=== PATIENT | female | born 1930 | race Asian ===

== ENCOUNTER 2021-12-23 06:32 | Inpatient (IN) | payer OTHER, MEDICAID, SELFPAY ==
[~2021-12-23] VITALS: Ht 152.4 cm; Wt 49.9 kg
[2021-12-23 06:32] VITALS: BP_SYST 210
[2021-12-23] MEDS ORDERED: NACL 0.9% 1,000 ML IV ONE (06:45)
[2021-12-23] MEDS ORDERED: LABETALOL 100 MG/ 20ML VIAL IVP PRN (07:00)
[2021-12-23 07:51] LABS: BASOPHILS # (AUTO) 0.1 K/uL (0.0-0.2); BASOPHILS % (AUTO) 0.9 % (0.0-2.0); EOSINOPHILS # (AUTO) 0.2 K/uL (0.0-0.4); EOSINOPHILS % (AUTO) 3.7 % (0.0-4.0); HEMATOCRIT 38.2 % (36-48); HEMOGLOBIN 12.6 g/dL (12.0-16.0); LYMPHOCYTES % (AUTO) 18.7 % (20.5-51.5); MEAN CORPUSCULAR HEMOGLOBIN 31 pg (27-31); MEAN CORPUSCULAR HGB CONC 33 % (32-36); MEAN CORPUSCULAR VOLUME 95 fL (79.0-98.0); MONOCYTES # (AUTO) 0.5 K/uL (0.0-1.0); MONOCYTES % (AUTO) 8.8 % (1.7-9.3); NEUTROPHILS # (AUTO) 3.7 K/uL (1.8-7.7); NEUTROPHILS % (AUTO) 67.9 % (40.0-70.0); PLATELET COUNT (AUTO) 213 K/uL (130-430); RED BLOOD CELL COUNT(AUTO) 4.02 MIL/uL (4.2-6.2); RED CELL DISTRIBUTION WIDTH 14.3 % (9.0-15.0); WHITE BLOOD COUNT (AUTO) 5.4 K/uL (4.8-10.8)
[2021-12-23 07:59] LABS: ANION GAP 7 (5-15); CALCIUM 9.4 mg/dL (8.4-11.0); CHLORIDE 103 mmol/L (98-107); CREATININE 1.02 mg/dL (0.55-1.30); GLUCOSE 104 mg/dL (70-99); SODIUM SERUM 137 mmol/L (136-145); UREA NITROGEN, BLOOD 21 mg/dL (8-21)
[2021-12-23 08:07] LABS: ALANINE AMINOTRANSFERASE 16 U/L (12-78); ALBUMIN 3.3 g/dL (3.4-4.8); ASPARTATE AMINOTRANSFERASE 19 U/L (10-37); TOTAL BILIRUBIN 0.1 mg/dL (0.0-1.0)
[2021-12-23 08:09] LABS: PROTHROMBIN TIME 9.7 SECS (9.5-12.5)
[2021-12-23] MEDS ORDERED: niCARdipine 25 MG in D5W 240 ML IV PRN ×2 (08:15→10:30)
[2021-12-23 08:34] LABS: CHOLESTEROL 188 mg/dL (<200); HDL CHOLESTEROL 73 mg/dL (>55); LDL CHOLESTEROL 87 mg/dL (<100); TRIGLYCERIDES 148 mg/dL (30-150)
[2021-12-23] MEDS ORDERED: ACETAMINOPHEN 650 MG/20.3 ML UDC PO ONE (08:45)
[2021-12-23] MEDS ORDERED: NORMAL SALINE 5 ML DISP.SYRIN IVF ONE (10:30)
[2021-12-23 11:26] LABS: BILIRUBIN,URINE NEGATIVE (NEGATIVE); CLARITY/URINE CLEAR (CLEAR); COLOR,URINE YELLOW (YELLOW); GLUCOSE,URINE NEGATIVE (NEGATIVE); KETONES,URINE NEGATIVE (NEGATIVE); LEUKOCYTE ESTERASE ,URINE TRACE (NEGATIVE); NITRITE, URINE NEGATIVE (NEGATIVE); PH,URINE 6.5 (5.0-8.0); PROTEIN URINE NEGATIVE (NEGATIVE); UROBILINOGEN,URINE 0.2 (0.2-1.0)
[2021-12-23 11:31] LABS: BLOOD, URINE TRACE (NEGATIVE)
[2021-12-23 11:44] LABS: BARBITURATE, URINE NEGATIVE (NEG <=200); BENZODIAZEPINE, URINE NEGATIVE (NEG <=150); CANNABINOID, URINE NEGATIVE (NEG <=50); COCAINE, URINE NEGATIVE (NEG <=150); METHAMPHETAMINES SCREEN,URINE NEGATIVE (NEG <=500); OPIATE, URINE NEGATIVE (NEG <=100); PHENCYCLIDINE SCREEN,URINE NEGATIVE (NEG <=25); UR TRICYCLIC ANTIDEPRESSANTS NEGATIVE (NEG <=300); URINE AMPHETAMINE NEGATIVE (NEG <=500); URINE METHADONE NEGATIVE (NEG <=200); URINE OXYCODONE SCREEN NEGATIVE (NEG <=100); URINE PROPOXYPHENE SCREEN NEGATIVE (NEG <=300)
[2021-12-23] MEDS ORDERED: LORazepam 2 MG/ML VIAL IVP ONE (13:30)
[2021-12-23 13:35] LABS: BACTERIA,URINE FEW /HPF (None Seen)
[2021-12-23 14:00] VITALS: BP_SYST 167
[2021-12-23 15:00] VITALS: BP_SYST 131
[2021-12-23 16:00] VITALS: BP_SYST 117
[2021-12-23 17:00] VITALS: BP_SYST 147
[2021-12-23 18:00] VITALS: BP_SYST 144
[2021-12-23] MEDS ORDERED: ATOR10TA68 PO (18:03)
[2021-12-23] MEDS ORDERED: FAMO20TA8 PO (18:03)
[2021-12-23] MEDS ORDERED: DOCU-144 PO (18:03)
[2021-12-23] MEDS ORDERED: FER300L PO (18:03)
[2021-12-23] MEDS ORDERED: FOLI-43 PO (18:03)
[2021-12-23] MEDS ORDERED: CAT1PAT PO (18:03)
[2021-12-23] MEDS ORDERED: GABA-529 PO (18:03)
[2021-12-23] MEDS ORDERED: LOSA100T3 PO (18:03)
[2021-12-24] VITALS (13 sets, daily range): BP systolic 135–166
[2021-12-24 06:18] LABS: BASOPHILS % (AUTO) 0.6 % (0.0-2.0); EOSINOPHILS # (AUTO) 0.2 K/uL (0.0-0.4); EOSINOPHILS % (AUTO) 2.4 % (0.0-4.0); HEMATOCRIT 33.9 % (36-48); HEMOGLOBIN 11.3 g/dL (12.0-16.0); LYMPHOCYTES # (AUTO) 1.5 K/uL (1.0-5.5); LYMPHOCYTES % (AUTO) 20.3 % (20.5-51.5); MEAN CORPUSCULAR HEMOGLOBIN 31 pg (27-31); MEAN CORPUSCULAR HGB CONC 33 % (32-36); MEAN CORPUSCULAR VOLUME 94 fL (79.0-98.0); MONOCYTES # (AUTO) 0.9 K/uL (0.0-1.0); MONOCYTES % (AUTO) 11.2 % (1.7-9.3); NEUTROPHILS % (AUTO) 65.5 % (40.0-70.0); PLATELET COUNT (AUTO) 223 K/uL (130-430); RED BLOOD CELL COUNT(AUTO) 3.61 MIL/uL (4.2-6.2); RED CELL DISTRIBUTION WIDTH 14.8 % (9.0-15.0); WHITE BLOOD COUNT (AUTO) 7.6 K/uL (4.8-10.8)
[2021-12-24 07:38] LABS: ALANINE AMINOTRANSFERASE 17 U/L (12-78); ANION GAP 9 (5-15); ASPARTATE AMINOTRANSFERASE 21 U/L (10-37); CALCIUM 8.8 mg/dL (8.4-11.0); CHLORIDE 103 mmol/L (98-107); CREATININE 0.91 mg/dL (0.55-1.30); GLUCOSE 83 mg/dL (70-99); POTASSIUM 4.2 mmol/L (3.5-5.1); SODIUM SERUM 136 mmol/L (136-145); TOTAL BILIRUBIN 0.2 mg/dL (0.0-1.0); UREA NITROGEN, BLOOD 16 mg/dL (8-21)
[2021-12-24] MEDS: amLODIPine BESYLATE 5 MG TABLET PO SCH (09:00)
[2021-12-24] MEDS: ASPIRIN 81 MG TAB.CHEW PO SCH (09:00)
[2021-12-24] MEDS ORDERED: LISINOPRIL 10 MG TABLET (PRINIVIL) PO ONE (21:00)
[2021-12-24] MEDS ORDERED: ACETAMINOPHEN 500 MG TABLET PO PRN (21:00)
[2021-12-24] MEDS ORDERED: LISINOPRIL 10 MG TABLET (PRINIVIL) ONE (21:01)
[2021-12-24] MEDS: MUPIROCIN 2% TOPICAL OINTMENT 22 GM TP SCH (21:15)
[2021-12-24] MEDS: TEMAZEPAM 15 MG CAPSULE PO PRN (21:35)
[2021-12-25] VITALS: BP_SYST 155
[2021-12-25 04:00] VITALS: BP_SYST 154
[2021-12-25 06:30] LABS: ANION GAP 9 (5-15); CALCIUM 9.3 mg/dL (8.4-11.0); CHLORIDE 104 mmol/L (98-107); CREATININE 0.93 mg/dL (0.55-1.30); GLUCOSE 77 mg/dL (70-99); POTASSIUM 3.7 mmol/L (3.5-5.1); SODIUM SERUM 137 mmol/L (136-145); UREA NITROGEN, BLOOD 16 mg/dL (8-21)
[2021-12-25 07:18] LABS: BASOPHILS # (AUTO) 0.1 K/uL (0.0-0.2); BASOPHILS % (AUTO) 0.8 % (0.0-2.0); EOSINOPHILS # (AUTO) 0.2 K/uL (0.0-0.4); EOSINOPHILS % (AUTO) 3.1 % (0.0-4.0); HEMATOCRIT 36.3 % (36-48); HEMOGLOBIN 11.9 g/dL (12.0-16.0); LYMPHOCYTES # (AUTO) 2.1 K/uL (1.0-5.5); MEAN CORPUSCULAR HEMOGLOBIN 31 pg (27-31); MEAN CORPUSCULAR HGB CONC 33 % (32-36); MEAN CORPUSCULAR VOLUME 95 fL (79.0-98.0); MONOCYTES # (AUTO) 0.7 K/uL (0.0-1.0); MONOCYTES % (AUTO) 10.9 % (1.7-9.3); NEUTROPHILS # (AUTO) 3.8 K/uL (1.8-7.7); NEUTROPHILS % (AUTO) 55.2 % (40.0-70.0); PLATELET COUNT (AUTO) 205 K/uL (130-430); RED BLOOD CELL COUNT(AUTO) 3.81 MIL/uL (4.2-6.2); RED CELL DISTRIBUTION WIDTH 14.9 % (9.0-15.0); WHITE BLOOD COUNT (AUTO) 6.9 K/uL (4.8-10.8)
[2021-12-25 08:00] VITALS: BP_SYST 160
[2021-12-25] MEDS: ASPIRIN 81 MG TAB.CHEW PO SCH (08:44)
[2021-12-25] MEDS: LISINOPRIL 10 MG TABLET (PRINIVIL) PO SCH (08:45)
[2021-12-25] MEDS: MUPIROCIN 2% TOPICAL OINTMENT 22 GM TP SCH ×2 (08:45→21:42)
[2021-12-25] MEDS: amLODIPine BESYLATE 5 MG TABLET PO SCH (08:46)
[2021-12-25 12:00] VITALS: BP_SYST 132
[2021-12-25 16:00] VITALS: BP_SYST 145
[2021-12-25 20:00] VITALS: BP_SYST 153; BP_SYST 155
[2021-12-26] VITALS: BP_SYST 145
[2021-12-26 04:00] VITALS: BP_SYST 142
[2021-12-26 07:35] VITALS: BP_SYST 175
[2021-12-26] MEDS: ASPIRIN 81 MG TAB.CHEW PO SCH (08:27)
[2021-12-26] MEDS: amLODIPine BESYLATE 5 MG TABLET PO SCH (08:28)
[2021-12-26] MEDS: LISINOPRIL 10 MG TABLET (PRINIVIL) PO SCH (08:28)
[2021-12-26] MEDS: ACETAMINOPHEN 325 MG TABLET PO PRN ×2 (08:29→18:32)
[2021-12-26] MEDS: MUPIROCIN 2% TOPICAL OINTMENT 22 GM TP SCH ×2 (08:33→23:30)
[2021-12-26] MEDS ORDERED: MILK OF MAGNESIA 30 ML UDC PO ONE (09:00)
[2021-12-26] MEDS ORDERED: amLODIPine BESYLATE 5 MG TABLET PO SCH (09:00)
[2021-12-26 11:25] VITALS: BP_SYST 158
[2021-12-26 15:35] VITALS: BP_SYST 144
[2021-12-26 20:00] VITALS: BP_SYST 147
[2021-12-27] MEDS: TEMAZEPAM 15 MG CAPSULE PO PRN (02:03)
[2021-12-27 08:15] VITALS: BP_SYST 138
[2021-12-27] MEDS: ASPIRIN 81 MG TAB.CHEW PO SCH (09:29)
[2021-12-27] MEDS: LISINOPRIL 10 MG TABLET (PRINIVIL) PO SCH (09:29)
[2021-12-27] MEDS: amLODIPine BESYLATE 5 MG TABLET PO SCH (09:29)
[2021-12-27] MEDS: MUPIROCIN 2% TOPICAL OINTMENT 22 GM TP SCH (09:30)
[2021-12-27 11:33] VITALS: BP_SYST 136
[2021-12-27 12:11] VITALS: BP_SYST 132
== END 2021-12-27 15:25 | disposition home health service (06) | DRG 69 ==
LOC: SED 06:32 → SIC 10:27 → STU 12-25 05:19 → SIC 12-25 07:42 → SMU 12-25 18:42 → STU 12-25 19:47
PROVIDERS: ADMIT Internal Medicine; ATTEND Internal Medicine
DX: G45.9 Transient cerebral ischemic attack, unspecified (principal); E44.1 Mild protein-calorie malnutrition; E11.9 Type 2 diabetes mellitus without complications; E78.5 Hyperlipidemia, unspecified; F03.90 Unspecified dementia, unspecified severity, without behavioral disturbance, psychotic disturbance, mood disturbance, and anxiety; I10 Essential (primary) hypertension; G89.29 Other chronic pain; M19.90 Unspecified osteoarthritis, unspecified site; R07.89 Other chest pain; Z20.822 Contact with and (suspected) exposure to COVID-19; R53.81 Other malaise; Z86.19 Personal history of other infectious and parasitic diseases; Z86.73 Personal history of transient ischemic attack (TIA), and cerebral infarction without residual deficits; Z79.899 Other long term (current) drug therapy; Z68.21 Body mass index [BMI] 21.0-21.9, adult
CPT/HCPCS: 36415; 70450-TC; 70551; 71045; 76376; 80048; 80053; 80061; 80307; 81000; 82962; 84484; 85025; 85610-TC; 85730-TC; 86886; 86900; 86901; 87081; 87086; 92610-GN; 93005; 93306; 96374; 96375; 97110-GP; 97112-GP; 97116-GP; 97163-GP; 97530-GP; 99285; J2060; J3490; J7060

== ENCOUNTER 2021-12-31 13:43 | Inpatient (IN) | payer OTHER, MEDICAID ==
[~2021-12-31] VITALS: Ht 149.9 cm; Wt 43.1 kg
[~2021-12-31 13:43] MED LIST: ATOR10TA68 PO; CAT1PAT PO; DOCU-144 PO; FAMO20TA8 PO; FER300L PO; FOLI-43 PO; GABA-529 PO; LOSA100T3 PO
--- NOTE | 2021-12-31 13:45 | NUR ---
BROUGHT IN BY [facility]. TRIAGED AND PLACED IN BED #2, REPORT GIVEN TO KIM
--- NOTE | 2021-12-31 14:00 | NUR ---
mechelle finch wants to be notified if pt will be admin [phone]
--- NOTE | 2021-12-31 14:51 | NUR ---
# 22 gauge angiocath placed to right forearm. Use of asceptic technique. Opsite placed over site. Blood return noted. Blood for lab drawn from site. Flushed with 10 cc of normal saline. No evidence of infiltration noted. Patient tolerated well.
[2021-12-31 15:23] LABS: BASOPHILS % (AUTO) 0.6 % (0.0-2.0); EOSINOPHILS # (AUTO) 0.3 K/uL (0.0-0.4); EOSINOPHILS % (AUTO) 4.7 % (0.0-4.0); HEMATOCRIT 27.6 % (36-48); HEMOGLOBIN 9.3 g/dL (12.0-16.0); LYMPHOCYTES # (AUTO) 1.5 K/uL (1.0-5.5); LYMPHOCYTES % (AUTO) 24.2 % (20.5-51.5); MEAN CORPUSCULAR HEMOGLOBIN 32 pg (27-31); MEAN CORPUSCULAR HGB CONC 34 % (32-36); MEAN CORPUSCULAR VOLUME 95 fL (79.0-98.0); MONOCYTES # (AUTO) 0.5 K/uL (0.0-1.0); NEUTROPHILS # (AUTO) 3.9 K/uL (1.8-7.7); NEUTROPHILS % (AUTO) 62.5 % (40.0-70.0); PLATELET COUNT (AUTO) 185 K/uL (130-430); RED CELL DISTRIBUTION WIDTH 14.9 % (9.0-15.0); WHITE BLOOD COUNT (AUTO) 6.2 K/uL (4.8-10.8)
[2021-12-31 15:52] LABS: ANION GAP 9 (5-15); CALCIUM 8.8 mg/dL (8.4-11.0); CHLORIDE 104 mmol/L (98-107); GLUCOSE 146 mg/dL (70-99); POTASSIUM 4.4 mmol/L (3.5-5.1); SODIUM SERUM 137 mmol/L (136-145); UREA NITROGEN, BLOOD 66 mg/dL (8-21)
[2021-12-31 15:59] LABS: ALANINE AMINOTRANSFERASE 15 U/L (12-78); ALBUMIN 2.8 g/dL (3.4-4.8); ASPARTATE AMINOTRANSFERASE 20 U/L (10-37)
[2021-12-31 16:27] LABS: INR 0.9 (0.8-1.2); PROTHROMBIN TIME 9.7 SECS (9.5-12.5)
[2021-12-31 17:02] LABS: C-REACTIVE PROTEIN QUANT 0.5 mg/dL (0-0.5); TOTAL BILIRUBIN 0.2 mg/dL (0.0-1.0)
[2021-12-31 17:54] LABS: BILIRUBIN,URINE NEGATIVE (NEGATIVE); BLOOD, URINE NEGATIVE (NEGATIVE); CLARITY/URINE CLEAR (CLEAR); COLOR,URINE YELLOW (YELLOW); GLUCOSE,URINE NEGATIVE (NEGATIVE); KETONES,URINE NEGATIVE (NEGATIVE); LEUKOCYTE ESTERASE ,URINE NEGATIVE (NEGATIVE); NITRITE, URINE NEGATIVE (NEGATIVE); PROTEIN URINE NEGATIVE (NEGATIVE); UROBILINOGEN,URINE 0.2 (0.2-1.0)
[2021-12-31] MEDS ORDERED: PANTOPRAZOLE SODIUM 80 MG in NS 100 ML IV ONE (18:15)
--- NOTE | 2021-12-31 18:40 | NUR ---
Admit bed requested Patient will be admitted to care of . Admitted to Tele unit. Diagnosis Low GI bleed Inpatient (Yes or No) Yes Observation (Yes or No) No Orientation concerns or request close to nursing station (Yes or No) no Covid Status Pending On vent or bipap no Isolation requirements none Needs a sitter no From Home (Yes or if No enter name of facility) yes Requires Dialysis (Yes or No) no Med Rec Completed (Yes of No) yes
[2021-12-31] MEDS ORDERED: PANTOPRAZOLE SODIUM 40 MG/VIAL (PROTONIX) ONE ×2 (19:03→23:28)
[2021-12-31 19:31] LABS: BASOPHILS % (AUTO) 0.6 % (0.0-2.0); EOSINOPHILS # (AUTO) 0.2 K/uL (0.0-0.4); HEMATOCRIT 34.2 % (36-48); LYMPHOCYTES # (AUTO) 1.4 K/uL (1.0-5.5); LYMPHOCYTES % (AUTO) 22.1 % (20.5-51.5); MEAN CORPUSCULAR HEMOGLOBIN 31 pg (27-31); MEAN CORPUSCULAR HGB CONC 32 % (32-36); MEAN CORPUSCULAR VOLUME 96 fL (79.0-98.0); MONOCYTES # (AUTO) 0.5 K/uL (0.0-1.0); MONOCYTES % (AUTO) 7.7 % (1.7-9.3); NEUTROPHILS # (AUTO) 4.1 K/uL (1.8-7.7); NEUTROPHILS % (AUTO) 65.6 % (40.0-70.0); PLATELET COUNT (AUTO) 200 K/uL (130-430); RED BLOOD CELL COUNT(AUTO) 3.58 MIL/uL (4.2-6.2); RED CELL DISTRIBUTION WIDTH 15.2 % (9.0-15.0); WHITE BLOOD COUNT (AUTO) 6.2 K/uL (4.8-10.8)
[2021-12-31] MEDS ORDERED: D5NS 1,000 ML IV ONE (19:45)
--- NOTE | 2021-12-31 19:50 | NUR ---
Received pt up in bed in stable condition. No signs of acute distress. Assisted to use bedpan and voided x1.
--- NOTE | 2021-12-31 21:39 | NUR ---
Patient will be admitted to care of [facility]. Admitted to Tele unit. Will go to room 103B. Complete and up to date summary report printed. SBAR report to be given at bedside with opportunity for questions. Spoke to mechelle Albarado and was notified of admit orders.
--- NOTE | 2021-12-31 21:40 | NUR ---
Per son, NO BLOOD TRANSFUSION due to yarsanism beliefs.
--- NOTE | 2021-12-31 22:30 | NUR ---
Patient will be admitted to care of [facility]. Admitted to Tele unit. Will go to room 103B. Complete and up to date summary report printed. SBAR report given to VINCE Cortez with opportunity for questions.
--- NOTE | 2021-12-31 22:50 | NUR ---
ADMISSION NOTE Received patient from ER via gurney. Patient admitted with diagnosis of lower gi bleed. Patient is awake, alert, oriented X 4. Patient oriented to hospital room, call light, toileting, pain management and safety-teach back done. Patient informed that will be nurse and that their room number is . Personal belongings checked and Belongings List documented. Call light within reach.
[2021-12-31] MEDS: PANTOPRAZOLE SODIUM 40 MG/VIAL (PROTONIX) IVP SCH (23:00)
--- NOTE | 2021-12-31 23:57 | NUR ---
CONSULTATION PAGED/CALLED Reason for Consultation: LOWER GI BLEED Person Who was Notified: TEENA Consulting Physician: KINZA Albright Specialty: Ordering Physician: ALYCIA Addendum: 01/01/22 at 0000 by Jhoana Leong CNA DR HERNANDEZ IS HOSPICE LIAISON
[2022-01-01] VITALS: BP_SYST 127
[2022-01-01 00:09] VITALS: BP_SYST 134
[2022-01-01 05:54] LABS: ANION GAP 10 (5-15); CALCIUM 8.7 mg/dL (8.4-11.0); CHLORIDE 112 mmol/L (98-107); CREATININE 1.26 mg/dL (0.55-1.30); GLUCOSE 73 mg/dL (70-99); SODIUM SERUM 144 mmol/L (136-145); UREA NITROGEN, BLOOD 46 mg/dL (8-21)
[2022-01-01 07:03] LABS: BASOPHILS % (AUTO) 0.5 % (0.0-2.0); EOSINOPHILS # (AUTO) 0.3 K/uL (0.0-0.4); EOSINOPHILS % (AUTO) 3.9 % (0.0-4.0); HEMATOCRIT 32.3 % (36-48); HEMOGLOBIN 10.4 g/dL (12.0-16.0); LYMPHOCYTES # (AUTO) 1.3 K/uL (1.0-5.5); LYMPHOCYTES % (AUTO) 18.9 % (20.5-51.5); MEAN CORPUSCULAR HEMOGLOBIN 31 pg (27-31); MEAN CORPUSCULAR HGB CONC 32 % (32-36); MEAN CORPUSCULAR VOLUME 96 fL (79.0-98.0); MONOCYTES # (AUTO) 0.6 K/uL (0.0-1.0); MONOCYTES % (AUTO) 8.3 % (1.7-9.3); NEUTROPHILS # (AUTO) 4.7 K/uL (1.8-7.7); NEUTROPHILS % (AUTO) 68.4 % (40.0-70.0); PLATELET COUNT (AUTO) 218 K/uL (130-430); RED BLOOD CELL COUNT(AUTO) 3.37 MIL/uL (4.2-6.2); RED CELL DISTRIBUTION WIDTH 15.5 % (9.0-15.0); WHITE BLOOD COUNT (AUTO) 6.8 K/uL (4.8-10.8)
--- NOTE | 2022-01-01 07:12 | NUR ---
REPORT GIVEN TO VINCE Eng, AND CARE WAS TURNED OVER TO HER.
--- NOTE | 2022-01-01 07:50 | NUR ---
Patient urinated in bedpan; then pulled up in bed. Denies any pain at this time. Patient stable.
[2022-01-01 08:00] VITALS: BP_SYST 153
--- NOTE | 2022-01-01 08:35 | NUR ---
Patient resting comfortably in bed with Dr. Pacheco at bedside.
--- NOTE | 2022-01-01 09:20 | NUR ---
Scheduled IVP given per order. Started new IVF bag as well. Patient stable at this time.
[2022-01-01] MEDS: KCL 20 mEq in D5/0.45NS 1000mL 1,000 ML IV SCH (09:23)
[2022-01-01] MEDS: PANTOPRAZOLE SODIUM 40 MG/VIAL (PROTONIX) IVP SCH ×2 (09:23→20:37)
[2022-01-01 12:20] VITALS: BP_SYST 126
--- NOTE | 2022-01-01 12:20 | NUR ---
Patient pulled up in bed to eat lunch. Patient resting comfortably in bed with Per min at bedside. Patient requested pain medication. Will medicate for pain. Addendum: 01/01/22 at 1227 by Shavon Moore RN Will call doctor for order for pain med Addendum: 01/01/22 at 1235 by Shavon Moore RN Paged Dr. Balderrama at [phone]. Spoke to Lacey. Awaiting call back from doctor.
[2022-01-01] MEDS: ACETAMINOPHEN 325 MG TABLET PO PRN (13:29)
--- NOTE | 2022-01-01 13:30 | NUR ---
Patient medicated for 6/10 pain in right flank. Patient stable with son and grandson at bedside.
--- NOTE | 2022-01-01 14:25 | NUR ---
Patient resting quietly in bed with Jamal (MAGI), son, and grandson at bedside. Patient stable.
[2022-01-01 16:12] VITALS: BP_SYST 142
--- NOTE | 2022-01-01 16:30 | NUR ---
Patient stable; resting comfortably in bed with Dr. Balderrama at bedside.
[2022-01-01] MEDS ORDERED: MILK OF MAGNESIA 30 ML UDC PO ONE ×2 (17:15→17:30)
[2022-01-01] MEDS ORDERED: MILK OF MAGNESIA 30 ML UDC PO PRN (17:30)
--- NOTE | 2022-01-01 18:55 | NUR ---
Scheduled medication given per order. Patient stable throughout shift.
[2022-01-01 20:00] VITALS: BP_SYST 185
[2022-01-01] MEDS: SENNOSIDES 8.6 MG TABLET PO SCH (20:38)
[2022-01-01] MEDS: MELATONIN 5 MG TABLET PO SCH (21:22)
[2022-01-02 00:09] VITALS: BP_SYST 165
[2022-01-02] MEDS: KCL 20 mEq in D5/0.45NS 1000mL 1,000 ML IV SCH ×3 (01:42→23:33)
--- NOTE | 2022-01-02 02:49 | NUR ---
PT WENT HOME AGAINST MEDICAL ADVICE. VITALS WERE TAKEN AND ARE WERE WITHIN NORMAL LIMITS. PERIPHERAL IV WAS REMOVED. MD MADE AWARE Addendum: 01/02/22 at 0346 by Devin feller operator PLEASE DISREGRADE NOTE, WRONG PT Addendum: 01/02/22 at 0347 by Sixteen feller operator PLEASE DISREGARD NOTE, WRONG PT
--- NOTE | 2022-01-02 03:47 | NUR ---
PLEASE DISREGARD NOTE WRONG PT
[2022-01-02 08:00] VITALS: BP_SYST 166
--- NOTE | 2022-01-02 08:00 | NUR ---
Initial Note Patient is in bed resting. Vital signs were obtained. Patient reported pain of R side ribs, stated pain is chronic from shingles two years ago. Medicated patient and will reassess pain in an hour. Call light within reach and bed is locked and at lowest position.
[2022-01-02] MEDS: ACETAMINOPHEN 325 MG TABLET PO PRN ×3 (08:13→21:51)
[2022-01-02] MEDS ORDERED: DIATR MEGLU/DIATRIZ SOD 30 ML SOLUTION PO ONE (08:18)
[2022-01-02] MEDS: PANTOPRAZOLE SODIUM 40 MG/VIAL (PROTONIX) IVP SCH ×2 (08:20→21:50)
--- NOTE | 2022-01-02 10:30 | NUR ---
Karen Hong 3.1, called and spoke to Dr. Hyde. New orders recieved Addendum: 01/02/22 at 1053 by Mariama Castillo LVN Wrong Entry
--- NOTE | 2022-01-02 10:49 | NUR ---
HIGH ALERT NOTE: Called Dr. Hyde back at identified within the medical roster to verify physician authenticity. Addendum: 01/02/22 at 1053 by Mariama Castillo LVN Wrong Entry
--- NOTE | 2022-01-02 11:05 | NUR ---
Notes Blood pressure is elevated. Dr. Spring is here covering for Dr. Shi, made aware.
[2022-01-02] MEDS ORDERED: FOLIC ACID 1 MG TABLET PO ONE (12:00)
[2022-01-02] MEDS ORDERED: GABAPENTIN 100 MG CAPSULE PO ONE (12:00)
[2022-01-02] MEDS ORDERED: cloNIDine HCL 0.1 MG/24 HR PATCH.TDWK TD ONE (12:00)
[2022-01-02] MEDS ORDERED: LOSARTAN POTASSIUM 50 MG TABLET (COZAAR) PO ONE (12:00)
--- NOTE | 2022-01-02 12:22 | NUR ---
Dietitian Recommendations * Consider advance to 2 gm Na, soft (low fiber/band) diet if/when medically appropriate LP, RD Please refer to Nutrition Assessment for details. Addendum: 01/02/22 at [address] Amended: Links added.
[2022-01-02 13:13] VITALS: BP_SYST 201
[2022-01-02 14:00] VITALS: BP_SYST 152
--- NOTE | 2022-01-02 16:00 | NUR ---
Patient reported a head ache, gave medication Acetaminophen. Patient also felt warm, temperature was 100.8 Fahrenheit. Put a wet wash cloth on forehead and took some of her blankets off. Will continue to monitor during the rest of the shift.
[2022-01-02 16:39] VITALS: BP_SYST 169
--- NOTE | 2022-01-02 18:30 | NUR ---
Closing Note Assisted patient to bedside commode and is back in bed. Patient in no distress or pain. Patient temperature is 99.7 Fahrenheit. Will report to following nurse to continue monitoring. Monitor blood pressure. Call light within reach. Bed alarm on, locked, and at lowest position.
--- NOTE | 2022-01-02 21:00 | NUR ---
ASSIST Patient out of bed for BSC , verbally indicative FALL MEASURES implemented , call paulino given to patient assist as needed .
[2022-01-02] MEDS: GABAPENTIN 100 MG CAPSULE PO SCH (21:50)
[2022-01-02] MEDS: MELATONIN 5 MG TABLET PO SCH (21:50)
[2022-01-02] MEDS: SENNOSIDES 8.6 MG TABLET PO SCH (21:51)
--- NOTE | 2022-01-02 23:30 | NUR ---
TYLENOL 650 MG po given for general pain & helpful .
--- NOTE | 2022-01-03 00:13 | NUR ---
paged paged doctor earl for orders
[2022-01-03 00:30] VITALS: BP_SYST 198
--- NOTE | 2022-01-03 00:40 | NUR ---
Phoned Paged DR DIMPLE GOODE SECOND TIME .
--- NOTE | 2022-01-03 00:51 | NUR ---
NEW ORDERS FROM DR DIMPLE GOODE
[2022-01-03] MEDS: cloNIDine HCL 0.1 MG TABLET PO PRN ×2 (02:20→22:10)
[2022-01-03 08:04] LABS: BASOPHILS % (AUTO) 0.4 % (0.0-2.0); EOSINOPHILS # (AUTO) 0.4 K/uL (0.0-0.4); EOSINOPHILS % (AUTO) 5.2 % (0.0-4.0); HEMATOCRIT 29.3 % (36-48); HEMOGLOBIN 9.8 g/dL (12.0-16.0); LYMPHOCYTES # (AUTO) 1.5 K/uL (1.0-5.5); LYMPHOCYTES % (AUTO) 21.3 % (20.5-51.5); MEAN CORPUSCULAR HEMOGLOBIN 32 pg (27-31); MEAN CORPUSCULAR HGB CONC 34 % (32-36); MEAN CORPUSCULAR VOLUME 95 fL (79.0-98.0); MONOCYTES # (AUTO) 0.5 K/uL (0.0-1.0); MONOCYTES % (AUTO) 7.9 % (1.7-9.3); NEUTROPHILS # (AUTO) 4.5 K/uL (1.8-7.7); NEUTROPHILS % (AUTO) 65.2 % (40.0-70.0); PLATELET COUNT (AUTO) 215 K/uL (130-430); RED BLOOD CELL COUNT(AUTO) 3.09 MIL/uL (4.2-6.2); RED CELL DISTRIBUTION WIDTH 15.3 % (9.0-15.0); WHITE BLOOD COUNT (AUTO) 6.8 K/uL (4.8-10.8)
[2022-01-03 08:58] LABS: ANION GAP 5 (5-15); CALCIUM 8.3 mg/dL (8.4-11.0); CHLORIDE 110 mmol/L (98-107); GLUCOSE 101 mg/dL (70-99); POTASSIUM 5.3 mmol/L (3.5-5.1); SODIUM SERUM 138 mmol/L (136-145); UREA NITROGEN, BLOOD 18 mg/dL (8-21)
[2022-01-03 09:05] LABS: TOTAL IRON BIND. CAPACITY 120 ug/dL (250-450)
[2022-01-03] MEDS: LOSARTAN POTASSIUM 50 MG TABLET (COZAAR) PO SCH (09:36)
[2022-01-03] MEDS: GABAPENTIN 100 MG CAPSULE PO SCH ×2 (09:36→22:09)
[2022-01-03] MEDS: FOLIC ACID 1 MG TABLET PO SCH (09:37)
[2022-01-03] MEDS: PANTOPRAZOLE SODIUM 40 MG/VIAL (PROTONIX) IVP SCH ×2 (09:37→22:09)
[2022-01-03] MEDS: ATORVASTATIN 10 MG TABLET PO SCH (09:37)
[2022-01-03] MEDS: DOCUSATE SODIUM 100 MG CAPSULE PO SCH (09:37)
[2022-01-03 12:41] VITALS: BP_SYST 153
[2022-01-03 16:06] VITALS: BP_SYST 148
[2022-01-03 20:06] VITALS: BP_SYST 149
[2022-01-03 21:00] VITALS: BP_SYST 163
[2022-01-03] MEDS: MELATONIN 5 MG TABLET PO SCH (21:00)
[2022-01-03] MEDS: SENNOSIDES 8.6 MG TABLET PO SCH (22:08)
[2022-01-03] MEDS: ACETAMINOPHEN 325 MG TABLET PO PRN (22:09)
--- NOTE | 2022-01-03 22:26 | NUR ---
CLONIDINE 0.1 MG po administer for elevated BP 163/85 HR 92 skin dry warm continue to monitor .
[2022-01-04 00:51] VITALS: BP_SYST 128
--- NOTE | 2022-01-04 01:24 | NUR ---
TYLENOL 650 MG po given for acute pain general & helpful patient resting .
[2022-01-04 08:00] VITALS: BP_SYST 150
[2022-01-04 08:06] LABS: FOLATE (FOLIC ACID) >20.0 ng/mL (>3.0)
[2022-01-04 08:48] LABS: BASOPHILS % (AUTO) 0.8 % (0.0-2.0); EOSINOPHILS # (AUTO) 0.4 K/uL (0.0-0.4); EOSINOPHILS % (AUTO) 6.8 % (0.0-4.0); HEMATOCRIT 31.6 % (36-48); HEMOGLOBIN 10.6 g/dL (12.0-16.0); LYMPHOCYTES # (AUTO) 1.3 K/uL (1.0-5.5); LYMPHOCYTES % (AUTO) 22.2 % (20.5-51.5); MEAN CORPUSCULAR HEMOGLOBIN 32 pg (27-31); MEAN CORPUSCULAR HGB CONC 34 % (32-36); MEAN CORPUSCULAR VOLUME 95 fL (79.0-98.0); MONOCYTES # (AUTO) 0.5 K/uL (0.0-1.0); MONOCYTES % (AUTO) 8.2 % (1.7-9.3); NEUTROPHILS # (AUTO) 3.7 K/uL (1.8-7.7); PLATELET COUNT (AUTO) 241 K/uL (130-430); RED BLOOD CELL COUNT(AUTO) 3.34 MIL/uL (4.2-6.2); RED CELL DISTRIBUTION WIDTH 15.1 % (9.0-15.0); WHITE BLOOD COUNT (AUTO) 5.9 K/uL (4.8-10.8)
[2022-01-04 09:09] LABS: ALANINE AMINOTRANSFERASE 15 U/L (12-78); ALBUMIN 2.5 g/dL (3.4-4.8); ANION GAP 6 (5-15); ASPARTATE AMINOTRANSFERASE 17 U/L (10-37); CALCIUM 8.6 mg/dL (8.4-11.0); CHLORIDE 107 mmol/L (98-107); CREATININE 0.95 mg/dL (0.55-1.30); GLUCOSE 81 mg/dL (70-99); POTASSIUM 5.1 mmol/L (3.5-5.1); SODIUM SERUM 138 mmol/L (136-145); TOTAL BILIRUBIN 0.5 mg/dL (0.0-1.0); UREA NITROGEN, BLOOD 16 mg/dL (8-21)
[2022-01-04] MEDS: FOLIC ACID 1 MG TABLET PO SCH (09:18)
[2022-01-04] MEDS: DOCUSATE SODIUM 100 MG CAPSULE PO SCH (09:19)
[2022-01-04] MEDS: GABAPENTIN 100 MG CAPSULE PO SCH (09:19)
[2022-01-04] MEDS: ATORVASTATIN 10 MG TABLET PO SCH (09:19)
[2022-01-04] MEDS: LOSARTAN POTASSIUM 50 MG TABLET (COZAAR) PO SCH (09:19)
[2022-01-04] MEDS: PANTOPRAZOLE SODIUM 40 MG/VIAL (PROTONIX) IVP SCH (09:20)
--- NOTE | 2022-01-04 10:53 | NUR ---
DISCHARGE PLANNING Called & spoke with Dr Balderrama to discuss dc planning. States was not on over the weekend & will come see pt around 1300. Will not discuss dc planning or give any dc planning orders until comes see pt.
--- NOTE | 2022-01-04 14:31 | NUR ---
Discharge Planning: [facility] faxed pt home health referral to [facility] P#[phone] DCP to follow up. Addendum: 01/04/22 at 1559 by Jennifer COX [facility] P#[phone] is resuming home health.
[2022-01-04 14:41] VITALS: BP_SYST 123
--- NOTE | 2022-01-04 18:03 | NUR ---
0800: PATIENT AWAKE, ALERT, ORIENTED X 3 TO NAME, PERSON, AND PLACE. FORGETFUL BUT ABLE TO REDIRECT. RESPIRATION EVEN AND UNLABORED NO S/S OF ANY ACUTE DISTRESS NOTED. ABLE TO VERBALIZE NEEDS NO C/O ANY PAIN OR DISCOMFORT NOTED. ABDOMEN SOFT AND NON-DISTENDED, POSITIVE BOWEL SOUND X 4 NO N/V OR DIARRHEA NOTED. SKIN WARM AND DRY INTACT NO REDNESS OR EDEMA NOTED. WILL CONTINUE TO MONITOR PATIENT, 1330: PATIENT TOLERATED PO WELL WITH FAIR APPETITE W/O ANY ABDOMINAL DISCOMFORT OR N/V NOTED. PATIENT KADIUM ON THE UNIT TO SEE PATIENT WITH NEW ORDER TO DC' PATIENT HOME. CONTINUE HOME MEDICATION BEFORE. FAMILY WAS NOTIFIED. WILL BE HERE AROUND 4PM TO PICK PATIENT UP 1620: PATIENT SON SERINA WAS IN THE HOSPITAL TO IMPLEMENTATION COORDINATOR PATIENT. PATIENT REMAINED STABLE W/O ANY CHANGE IN LOC. DISCHARGE INSTRUCTION GIVEN TO PATIENT'S SON SERINA. VERBALIZE UNDERSTANDING AND WILL COMPLY WITH INSTRUCTION GIVEN. F/U WITH OWN PRIMARY PHYSICIAN IN THE NEXT 2 WEEKS. IV HEPLOCK WAS DC'D AND PATIENT WAS TRANSPORTED VIA W/C TO [facility].
[2022-01-07 14:33] LABS: FERRITIN 1516 ng/mL (15-150)
== END 2022-01-04 16:20 | disposition home health service (06) | DRG 378 ==
LOC: SED 13:43 → STU 19:45 → SMU 01-02 10:58
PROVIDERS: ADMIT Family Medicine; ATTEND Family Medicine
DX: K57.31 Diverticulosis of large intestine without perforation or abscess with bleeding (principal); N17.9 Acute kidney failure, unspecified; E44.0 Moderate protein-calorie malnutrition; Z68.1 Body mass index [BMI] 19.9 or less, adult; E86.0 Dehydration; I10 Essential (primary) hypertension; Z20.822 Contact with and (suspected) exposure to COVID-19; D64.9 Anemia, unspecified; F03.90 Unspecified dementia, unspecified severity, without behavioral disturbance, psychotic disturbance, mood disturbance, and anxiety; K59.00 Constipation, unspecified; I95.9 Hypotension, unspecified; Z86.73 Personal history of transient ischemic attack (TIA), and cerebral infarction without residual deficits; Z79.899 Other long term (current) drug therapy
CPT/HCPCS: 36415; 71045; 76376; 80048; 80053; 81003; 82272; 82550; 82607; 82728; 82746; 83540; 83550; 83605; 83735; 83880; 84484; 85025; 85610-TC; 85730-TC; 86140; 86886; 86900; 86901; 87040; 87086; 96374; 99285; C9113; G0378; Q9964